=== PATIENT | female | born 1940 | race Caucasian/White ===

== ENCOUNTER 2024-05-22 14:37 | Emergency (ER) | payer MEDICARE ==
[~2024-05-22] VITALS: Ht 157.5 cm; Wt 63.5 kg
[2024-05-22 16:05] VITALS: TEMP 99.6
[2024-05-22 16:48] LABS: BASOPHILS % 0.5 % (0.0-1.0); EOSINOPHILS # (AUTO) 0.1 (0.0-0.4); EOSINOPHILS % 0.9 % (0.0-6.0); HEMATOCRIT 43.9 % (34.2-44.1); HEMOGLOBIN 13.7 g/dL (12.0-16.0); LYMPHOCYTES # (AUTO) 1.8 (1.0-3.2); LYMPHOCYTES % 20.2 % (18.0-39.1); MEAN CORPUSCULAR HEMOGLOBIN 25.5 pg (28-32); MEAN CORPUSCULAR HGB CONC 31.2 g/dL (31-35); MEAN CORPUSCULAR VOLUME 81.6 fL (81-99); MONOCYTES # (AUTO) 0.7 (0.2-0.8); MONOCYTES % 7.7 % (4.4-11.3); NEUTROPHILS # (AUTO) 6.1 (2.1-6.9); NEUTROPHILS % 70.4 % (38.7-80.0); PLATELET COUNT 354 x10e3/uL (140-360); RED BLOOD COUNT 5.38 x10e6/uL (3.6-5.1); RED CELL DISTRIBUTION WIDTH 16.4 % (11.7-14.4); WHITE BLOOD COUNT 8.71 x10e3/uL (4.8-10.8)
[2024-05-22] MEDS: ONDANSETRON HCL INJ 2MG/ML 2ML 2 MG/ML VIAL IV STA (17:00)
[2024-05-22] MEDS: SODIUM CHLORIDE 0.9% 1000ML 1,000 ML IV STA (17:00)
[2024-05-22] MEDS: KETOROLAC TROMETHAMINE 30 MG/ML VIAL IV STA (17:00)
[2024-05-22] MEDS: ONDANSETRON HCL 4 MG ORAL DISINTEGRATING TAB PO ONE (17:03)
[2024-05-22 17:10] LABS: ALBUMIN 4.3 g/dL (3.5-5.0); ALBUMIN/GLOBULIN RATIO 1.1 (0.8-2.0); BILIRUBIN,TOTAL 0.6 mg/dL (0.2-1.2); CALCIUM 9.6 mg/dL (8.4-10.2); CREATININE, SERUM 0.79 mg/dL (0.57-1.11); TOTAL PROTEIN 8.3 g/dL (6.5-8.1)
[2024-05-22 17:11] LABS: BILIRUBIN,URINE NEGATIVE (NEGATIVE); CLARITY,URINE CLEAR (CLEAR); COLOR,URINE YELLOW (YELLOW); GLUCOSE, URINE NEGATIVE (NEGATIVE); KETONES,URINE NEGATIVE (NEGATIVE); LEUKOCYTE ESTERASE ,URINE NEGATIVE (NEGATIVE); NITRITE,URINE NEGATIVE (NEGATIVE); PH,URINE 6 (5 - 7); PROTEIN,URINE DIPSTICK NEGATIVE (NEGATIVE); URINE UROBILINOGEN 0.2 mg/dL (0.2 - 1)
[2024-05-22 17:21] LABS: BACTERIA,URINE RARE /HPF
[2024-05-22] MEDS: Morphine 2mg Syringe 2 MG/ML SYR IV ONE (18:26)
[2024-05-22 19:00] VITALS: PULSE 64; RESP 16; O2SAT 95
== END 2024-05-22 20:35 | disposition home or self-care (01) ==
LOC: ER 15:49
DX: R50.9 Fever, unspecified (principal); R33.9 Retention of urine, unspecified; R10.12 Left upper quadrant pain
CPT/HCPCS: 36415; 51702; 74176; 80053; 81001; 83690; 85025; 87086; 99283; J1885; J2270; J2405; J7030; 51700